=== PATIENT | male | born 1995 | race Caucasian/White ===

== ENCOUNTER 2018-04-29 11:44 | Emergency (ER) | payer SELFPAY ==
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
== END 2018-04-29 13:19 | disposition home or self-care (01) ==
LOC: ER 11:44
DX: S62.91XA Unspecified fracture of right hand, initial encounter for closed fracture (principal); W22.8XXA Striking against or struck by other objects, initial encounter; Y92.009 Unspecified place in unspecified non-institutional (private) residence as the place of occurrence of the external cause
CPT/HCPCS: 99283

== ENCOUNTER 2018-08-11 09:43 | Emergency (ER) | payer SELFPAY ==
[2018-08-11] MEDS ORDERED: IBUPROFEN 600 MG TABLET PO ONE (10:11)
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
== END 2018-08-11 11:17 | disposition home or self-care (01) ==
LOC: ER 09:43
DX: S89.91XA Unspecified injury of right lower leg, initial encounter (principal); V86.55XA Driver of 3- or 4- wheeled all-terrain vehicle (ATV) injured in nontraffic accident, initial encounter; F17.210 Nicotine dependence, cigarettes, uncomplicated
CPT/HCPCS: 99283